=== PATIENT | female | born 1970 | race Two or more races ===

== ENCOUNTER 2018-09-26 14:40 | Emergency (ER) | payer MEDICAID ==
[~2018-09-26] VITALS: Ht 154.9 cm; Wt 52.0 kg
[2018-09-26] MEDS ORDERED: normal saline 1000ML IV soln IVB ONE (15:35)
[2018-09-26 15:54] LABS: BASOPHILS # (AUTO) 0.1 X10'3 (0-0.2); BASOPHILS % (AUTO) 1.2 % (0-1); EOSINOPHILS # (AUTO) 0.2 X10'3 (0-0.9); EOSINOPHILS % (AUTO) 4.3 % (0-6); HEMATOCRIT 39.7 % (35.0-45.0); HEMOGLOBIN 13.5 g/dl (12.0-16.0); LYMPHOCYTES # (AUTO) 1.6 X10'3 (1.1-4.8); LYMPHOCYTES % (AUTO) 35.2 % (21-51); MEAN CORPUSCULAR HEMOGLOBIN 29.4 PG (27.0-31.0); MEAN CORPUSCULAR HGB CONC 34.1 g/dL (33.0-36.5); MEAN CORPUSCULAR VOLUME 86.2 FL (78-98); MEAN PLATELET VOLUME 7.8 FL (7.4-10.4); MONOCYTES # (AUTO) 0.3 X10'3 (0-0.9); MONOCYTES % (AUTO) 6.9 % (2-12); NEUTROPHILS # (AUTO) 2.3 X10'3 (1.8-7.7); NEUTROPHILS % (AUTO) 52.4 % (42-75); PLATELET COUNT 224 X10'3 (140-440); RED BLOOD COUNT 4.61 X10'6 (4.20-5.60); RED CELL DISTRIBUTION WIDTH 12.9 % (11.5-14.5); WHITE BLOOD COUNT 4.4 X10'3 (4.5-11.0)
[2018-09-26 16:22] LABS: ALANINE AMINOTRANSFERASE 42 U/L (12-78); ALBUMIN/GLOBULIN RATIO 1.1 (1.1-1.5); ALKALINE PHOSPHATASE 67 IU/L (46-116); ANION GAP 7 (8-16); ASPARTATE AMINO TRANSFERASE 29 U/L (10-37); BILIRUBIN,TOTAL 0.5 MG/DL (0.1-1.0); BLOOD UREA NITROGEN 12 MG/DL (7-18); BUN/CREATININE RATIO 20.3 (6.6-38.0); CHLORIDE 106 MMOL/L (99-107); CREATININE 0.59 MG/DL (0.40-0.90); GLUCOSE 86 MG/DL (70-104); POTASSIUM 3.6 MMOL/L (3.5-5.1); SODIUM 142 MMOL/L (135-145); TOTAL CARBON DIOXIDE 28.9 MMOL/L (24-32); TOTAL PROTEIN 7.6 G/DL (6.4-8.2); eGFR > 90 ML/MIN
[2018-09-26 16:25] LABS: MAGNESIUM 1.7 MG/DL (1.5-2.4)
[2018-09-26 16:41] LABS: D-DIMER 0.37 MG/L FEU (0-0.50); INR 1.1 INR; PARTIAL THROMBOPLASTIN TIME 27 SECONDS (22-32); PROTHROMBIN TIME 10.7 SECONDS (9.0-12.0)
--- NOTE | 2018-09-26 18:43 | NUR ---
Patient is sitting upright in bed and reports resolution of symptoms. Patient is feeling better and wishes to go. She inquires about the length of time to perform the blood tests that were just drawn.
[2018-09-26 19:35] VITALS: BP 104/65
== END 2018-09-26 19:38 | disposition home or self-care (01) ==
LOC: ER 14:41
DX: R00.2 Palpitations (principal); R07.89 Other chest pain; R42 Dizziness and giddiness; R53.1 Weakness; R20.2 Paresthesia of skin; R63.0 Anorexia; R49.1 Aphonia
CPT/HCPCS: 36415; 71045; 80053; 82948; 83735; 83880; 84439; 84443; 84484; 85025; 85379; 85610; 85730; 93005; 96360; 99284; J7030

== ENCOUNTER 2020-03-15 01:29 | Emergency (ER) | payer MEDICAID ==
[2020-03-15] MEDS ORDERED: HYDR-3686 PO (01:58)
[2020-03-15] MEDS ORDERED: LORazepam 1 MG tablet PO ONE (02:00)
--- NOTE | 2020-03-15 02:08 | NUR ---
PT FEELING ANXIOUS AND NEEDED HELP WITH THIS. RECEIVED ATIVAN HERE.
[2020-03-15 02:12] VITALS: BP 105/63
== END 2020-03-15 02:12 | disposition home or self-care (01) ==
LOC: ER 01:30
DX: F41.9 Anxiety disorder, unspecified (principal); Z79.899 Other long term (current) drug therapy
CPT/HCPCS: 93005; 99283